=== PATIENT | male | born 1970 | race Caucasian/White ===

== ENCOUNTER 2018-07-18 05:54 | Inpatient (IN) | payer OTHER ==
[2018-07-18] MEDS ORDERED: ALBUTEROL/IPRATROPIUM (NEB) 3 ML AMP HHN (08:30)
[2018-07-18] MEDS ORDERED: ACETAMINOPHEN 325 MG TAB PO (08:30)
[2018-07-18] MEDS ORDERED: NACL 0.9% 3 ML SYG IV (08:30)
[2018-07-18] MEDS ORDERED: ONDANSETRON 4 MG INJ IV (08:30)
[2018-07-18] MEDS ORDERED: traMADol 50 MG TAB PO (08:30)
[2018-07-18] MEDS ORDERED: VANCOMYCIN IV PER PHARMACY XX (08:30)
[2018-07-18 09:58] LABS: ADD MAN DIFF? NO
[2018-07-18] MEDS: GABAPENTIN 300 MG CAP PO ×3 (09:59→20:46)
[2018-07-18] MEDS: CEFEPIME 1GM/50 ML (PMX) 50 ML IVPB ×2 (09:59→21:01)
[2018-07-18] MEDS ORDERED: GLUCAGON 1 MG INJ IM (10:00)
[2018-07-18] MEDS ORDERED: DEXTROSE 50% 50 ML SYRINGE IV ×2 (10:00)
[2018-07-18] MEDS: HEPARIN 5,000 UNIT/1 ML VIAL SC ×2 (10:00→20:49)
[2018-07-18] MEDS ORDERED: GLUCOSE GEL 15 GRAM TUBE BUCCAL (10:00)
[2018-07-18] MEDS ORDERED: GLUCOSE GEL 15 GRAM TUBE PO ×2 (10:00)
[2018-07-18 10:06] LABS: WHITE BLOOD COUNT 6.2 10^3/ul (4.8-10.8)
[2018-07-18 10:07] LABS: ABNORMAL IP MESSAGE 1; BASOPHILS % 0.5 % (0.0-2.0); EOSINOPHILS # 0.1 10^3/ul (0.0-0.5); EOSINOPHILS % 1.3 % (0.0-7.0); HEMATOCRIT 40.8 % (42.0-52.0); HEMOGLOBIN 14.2 g/dl (14.0-18.0); LYMPHOCYTES # 1.8 10^3/ul (0.8-2.9); LYMPHOCYTES % 29.6 % (15.0-51.0); MEAN CORPUSCULAR HEMOGLOBIN 31.7 pg (29.0-33.0); MEAN CORPUSCULAR HGB CONC 34.8 g/dl (32.0-37.0); MEAN CORPUSCULAR VOLUME 91.1 fl (82.0-101.0); MEAN PLATELET VOLUME 12.4 fl (7.4-10.4); MONOCYTE # 0.4 10^3/ul (0.3-0.9); MONOCYTES % 6.3 % (0.0-11.0); NEUTROPHIL # 3.8 10^3/ul (1.6-7.5); PLATELET COUNT 79 10^3/UL (140-415); POSITIVE DIFF @See below; RED BLOOD COUNT 4.48 10^6/ul (4.70-6.10); RED CELL DISTRIBUTION WIDTH 12.7 % (11.5-14.5)
[2018-07-18 10:16] LABS: HEMOGLOBIN A1C 9.9 % (0-5.9)
[2018-07-18 10:24] LABS: ALANINE AMINOTRANSFERASE 31 IU/L (13-69); ALBUMIN 3.6 g/dl (3.3-4.9); ALKALINE PHOSPHATASE 82 IU/L (42-121); ANION GAP 6 (5-13); ASPARTATE AMINO TRANSFERASE 28 IU/L (15-46); BILIRUBIN,INDIRECT 0.8 mg/dl (0-1.1); BILIRUBIN,TOTAL 0.8 mg/dl (0.2-1.3); BLOOD UREA NITROGEN 11 mg/dl (7-20); CALCIUM 8.9 mg/dl (8.4-10.2); CARBON DIOXIDE 30 mmol/L (21-31); CHLORIDE 100 mmol/L (97-110); CREATININE 0.58 mg/dl (0.61-1.24); Estimated GFR > 60 mL/min (>60); GLUCOSE 280 mg/dl (70-220); POTASSIUM 3.9 mmol/L (3.5-5.1); SODIUM 136 mmol/L (135-144); TOTAL PROTEIN 7.2 g/dl (6.1-8.1)
[2018-07-18] MEDS: VANCOMYCIN HCL 2 GM in SOD CHLORIDE 0.9% 500 ML IVPB (12:35)
[2018-07-18] MEDS: LISINOPRIL 10 MG TAB PO (12:42)
[2018-07-18] MEDS: HYDROCODONE/APAP (10/325) TAB PO (12:42)
[2018-07-18] MEDS: INSULIN ASPART [NOVOLOG] 3 ML PEN SC ×5 (13:18→20:57)
[2018-07-18] MEDS: INSULIN GLARGINE [LANTus] (100 UNITS/ML) SYG SC (14:36)
[2018-07-18] MEDS ORDERED: INSULIN GLARGINE [LANTus] (100 UNITS/ML) SYG SC (21:00)
[2018-07-18] MEDS: HYDROCODONE/APAP (5/325) TAB PO (21:53)
[2018-07-19] MEDS: VANCOMYCIN HCL 1.5 GM in SOD CHLORIDE 0.9% 250 ML IVPB ×2 (00:08→12:45)
[2018-07-19] MEDS: ACCU-CHEK XX (02:00)
[2018-07-19 06:12] LABS: ADD MAN DIFF? NO
[2018-07-19 06:19] LABS: ABNORMAL IP MESSAGE 1; BASOPHILS % 0.3 % (0.0-2.0); EOSINOPHILS # 0.1 10^3/ul (0.0-0.5); EOSINOPHILS % 1.6 % (0.0-7.0); HEMATOCRIT 39.9 % (42.0-52.0); HEMOGLOBIN 13.9 g/dl (14.0-18.0); LYMPHOCYTES # 2.3 10^3/ul (0.8-2.9); LYMPHOCYTES % 37.1 % (15.0-51.0); MEAN CORPUSCULAR HEMOGLOBIN 32.3 pg (29.0-33.0); MEAN CORPUSCULAR HGB CONC 34.8 g/dl (32.0-37.0); MEAN CORPUSCULAR VOLUME 92.6 fl (82.0-101.0); MEAN PLATELET VOLUME 12.8 fl (7.4-10.4); MONOCYTE # 0.5 10^3/ul (0.3-0.9); MONOCYTES % 8.3 % (0.0-11.0); NEUTROPHIL # 3.2 10^3/ul (1.6-7.5); NEUTROPHILS % 52.5 % (39.0-77.0); PLATELET COUNT 76 10^3/UL (140-415); POSITIVE DIFF @See below; RED BLOOD COUNT 4.31 10^6/ul (4.70-6.10); RED CELL DISTRIBUTION WIDTH 12.6 % (11.5-14.5)
[2018-07-19 06:19] LABS: WHITE BLOOD COUNT 6.1 10^3/ul (4.8-10.8)
[2018-07-19 06:35] LABS: CHOL/HDL RATIO 4.1 RATIO; HDL CHOLESTEROL 32 mg/dl (27-67); LDL CHOLESTEROL,CALCULATED 62 mg/dl; TRIGLYCERIDES 194 mg/dl (0-149)
[2018-07-19 06:35] LABS: CHOLESTEROL 133 mg/dl (100-200)
[2018-07-19 06:43] LABS: ANION GAP 5 (5-13); BLOOD UREA NITROGEN 11 mg/dl (7-20); CALCIUM 8.8 mg/dl (8.4-10.2); CARBON DIOXIDE 31 mmol/L (21-31); CHLORIDE 101 mmol/L (97-110); Estimated GFR > 60 mL/min (>60); GLUCOSE 225 mg/dl (70-220); POTASSIUM 4.8 mmol/L (3.5-5.1); SODIUM 137 mmol/L (135-144)
[2018-07-19] MEDS: INSULIN ASPART [NOVOLOG] 3 ML PEN SC ×7 (08:04→20:50)
[2018-07-19] MEDS: INSULIN GLARGINE [LANTus] (100 UNITS/ML) SYG SC (08:05)
[2018-07-19] MEDS: HEPARIN 5,000 UNIT/1 ML VIAL SC ×2 (08:05→20:47)
[2018-07-19] MEDS: LISINOPRIL 10 MG TAB PO (08:09)
[2018-07-19] MEDS: GABAPENTIN 300 MG CAP PO ×3 (08:09→20:44)
[2018-07-19] MEDS: CEFEPIME 1GM/50 ML (PMX) 50 ML IVPB ×2 (08:10→20:44)
[2018-07-19] MEDS: NICOTINE (21 MG/24 HR) PATCH TRANSDERM (10:09)
[2018-07-19] MEDS: DAKINS 0.0125%(1/40) 473 ML SOLUTION TP ×2 (14:05)
[2018-07-19] MEDS: HYDROCODONE/APAP (5/325) TAB PO ×2 (18:06→23:11)
[2018-07-19] MEDS: GENTAMICIN 0.1% 15 GM OINT TOP (21:00)
[2018-07-19] MEDS: MUPIROCIN 2% 22 GM OINT TOP (23:09)
[2018-07-20] MEDS: VANCOMYCIN HCL 1.5 GM in SOD CHLORIDE 0.9% 250 ML IVPB (01:14)
[2018-07-20] MEDS: ACCU-CHEK XX (02:00)
[2018-07-20 05:18] LABS: ADD MAN DIFF? NO
[2018-07-20 05:24] LABS: WHITE BLOOD COUNT 6.8 10^3/ul (4.8-10.8)
[2018-07-20 05:24] LABS: ABNORMAL IP MESSAGE 1; BASOPHILS % 0.3 % (0.0-2.0); EOSINOPHILS # 0.1 10^3/ul (0.0-0.5); EOSINOPHILS % 1.2 % (0.0-7.0); HEMATOCRIT 40.5 % (42.0-52.0); HEMOGLOBIN 14.2 g/dl (14.0-18.0); LYMPHOCYTES # 2.3 10^3/ul (0.8-2.9); LYMPHOCYTES % 33.8 % (15.0-51.0); MEAN CORPUSCULAR HEMOGLOBIN 31.9 pg (29.0-33.0); MEAN CORPUSCULAR HGB CONC 35.1 g/dl (32.0-37.0); MEAN PLATELET VOLUME 12.4 fl (7.4-10.4); MONOCYTE # 0.5 10^3/ul (0.3-0.9); MONOCYTES % 7.5 % (0.0-11.0); NEUTROPHIL # 3.9 10^3/ul (1.6-7.5); NEUTROPHILS % 56.9 % (39.0-77.0); PLATELET COUNT 82 10^3/UL (140-415); POSITIVE DIFF @See below; RED BLOOD COUNT 4.45 10^6/ul (4.70-6.10); RED CELL DISTRIBUTION WIDTH 12.8 % (11.5-14.5)
[2018-07-20 05:48] LABS: ANION GAP 9 (5-13); BLOOD UREA NITROGEN 12 mg/dl (7-20); CALCIUM 8.7 mg/dl (8.4-10.2); CARBON DIOXIDE 28 mmol/L (21-31); CHLORIDE 101 mmol/L (97-110); CREATININE 0.52 mg/dl (0.61-1.24); Estimated GFR > 60 mL/min (>60); GLUCOSE 166 mg/dl (70-220); POTASSIUM 3.9 mmol/L (3.5-5.1); SODIUM 138 mmol/L (135-144)
[2018-07-20] MEDS: INSULIN ASPART [NOVOLOG] 3 ML PEN SC ×7 (08:14→20:22)
[2018-07-20] MEDS: HYDROCODONE/APAP (5/325) TAB PO ×3 (08:42→22:30)
[2018-07-20] MEDS: LISINOPRIL 10 MG TAB PO (08:42)
[2018-07-20] MEDS: GABAPENTIN 300 MG CAP PO ×3 (08:42→20:16)
[2018-07-20] MEDS: INSULIN GLARGINE [LANTus] (100 UNITS/ML) SYG SC (08:44)
[2018-07-20] MEDS: NICOTINE (21 MG/24 HR) PATCH TRANSDERM (08:44)
[2018-07-20] MEDS: CEFEPIME 1GM/50 ML (PMX) 50 ML IVPB ×2 (08:44→20:16)
[2018-07-20] MEDS: HEPARIN 5,000 UNIT/1 ML VIAL SC ×2 (08:44→20:23)
[2018-07-20] MEDS: MUPIROCIN 2% 22 GM OINT TOP ×2 (08:45→20:23)
[2018-07-20] MEDS: GENTAMICIN 0.1% 15 GM OINT TOP ×3 (08:45→20:23)
[2018-07-20] MEDS: DAKINS 0.0125%(1/40) 473 ML SOLUTION TP (08:46)
[2018-07-20] MEDS: VANCOMYCIN HCL 1.25 GM in SOD CHLORIDE 0.9% 250 ML IVPB ×2 (09:57→18:35)
[2018-07-20] MEDS: FISH OIL 1,000 MG CAP PO ×2 (11:33→20:16)
[2018-07-21] MEDS: ACCU-CHEK XX (02:00)
[2018-07-21] MEDS: VANCOMYCIN HCL 1.25 GM in SOD CHLORIDE 0.9% 250 ML IVPB ×3 (02:29→19:29)
[2018-07-21 03:07] LABS: VANCOMYCIN,TROUGH 12.3 ug/ml (10.0-20.0)
[2018-07-21] MEDS: INSULIN ASPART [NOVOLOG] 3 ML PEN SC ×7 (08:00→21:00)
[2018-07-21] MEDS: GABAPENTIN 300 MG CAP PO ×3 (08:15→21:40)
[2018-07-21] MEDS: LISINOPRIL 10 MG TAB PO (08:15)
[2018-07-21] MEDS: FISH OIL 1,000 MG CAP PO ×2 (08:15→21:40)
[2018-07-21] MEDS: MUPIROCIN 2% 22 GM OINT TOP ×2 (08:16→21:00)
[2018-07-21] MEDS: NICOTINE (21 MG/24 HR) PATCH TRANSDERM (08:16)
[2018-07-21] MEDS: CEFEPIME 1GM/50 ML (PMX) 50 ML IVPB ×2 (08:16→21:40)
[2018-07-21] MEDS: INSULIN GLARGINE [LANTus] (100 UNITS/ML) SYG SC (08:19)
[2018-07-21] MEDS: HEPARIN 5,000 UNIT/1 ML VIAL SC ×2 (08:20→22:09)
[2018-07-21] MEDS: HYDROCODONE/APAP (10/325) TAB PO ×2 (09:59→17:47)
[2018-07-21] MEDS: GENTAMICIN 0.1% 15 GM OINT TOP ×3 (10:00→21:00)
[2018-07-21] MEDS: DAKINS 0.0125%(1/40) 473 ML SOLUTION TP (10:01)
[2018-07-22] MEDS: ACCU-CHEK XX (01:20)
[2018-07-22] MEDS: VANCOMYCIN HCL 1.25 GM in SOD CHLORIDE 0.9% 250 ML IVPB ×3 (02:32→18:07)
[2018-07-22] MEDS: INSULIN ASPART [NOVOLOG] 3 ML PEN SC ×7 (08:00→20:15)
[2018-07-22] MEDS: HEPARIN 5,000 UNIT/1 ML VIAL SC ×2 (08:18→20:13)
[2018-07-22] MEDS: INSULIN GLARGINE [LANTus] (100 UNITS/ML) SYG SC (08:19)
[2018-07-22] MEDS: FISH OIL 1,000 MG CAP PO ×2 (08:19→20:10)
[2018-07-22] MEDS: CEFEPIME 1GM/50 ML (PMX) 50 ML IVPB ×2 (08:19→22:04)
[2018-07-22] MEDS: GABAPENTIN 300 MG CAP PO ×3 (08:20→20:11)
[2018-07-22] MEDS: LISINOPRIL 10 MG TAB PO (08:20)
[2018-07-22] MEDS: GENTAMICIN 0.1% 15 GM OINT TOP ×3 (08:21→20:18)
[2018-07-22] MEDS: DAKINS 0.0125%(1/40) 473 ML SOLUTION TP (08:22)
[2018-07-22] MEDS: NICOTINE (21 MG/24 HR) PATCH TRANSDERM (08:24)
[2018-07-22] MEDS: MUPIROCIN 2% 22 GM OINT TOP ×2 (08:25→20:17)
[2018-07-22 09:07] LABS: ADD MAN DIFF? NO
[2018-07-22 09:09] LABS: ABNORMAL IP MESSAGE 1; BASOPHILS % 0.5 % (0.0-2.0); EOSINOPHILS # 0.1 10^3/ul (0.0-0.5); EOSINOPHILS % 1.4 % (0.0-7.0); HEMATOCRIT 41.5 % (42.0-52.0); HEMOGLOBIN 14.6 g/dl (14.0-18.0); LYMPHOCYTES # 1.6 10^3/ul (0.8-2.9); LYMPHOCYTES % 27.4 % (15.0-51.0); MEAN CORPUSCULAR HEMOGLOBIN 32.2 pg (29.0-33.0); MEAN CORPUSCULAR HGB CONC 35.2 g/dl (32.0-37.0); MEAN CORPUSCULAR VOLUME 91.6 fl (82.0-101.0); MEAN PLATELET VOLUME 11.9 fl (7.4-10.4); MONOCYTE # 0.4 10^3/ul (0.3-0.9); MONOCYTES % 7.3 % (0.0-11.0); NEUTROPHIL # 3.6 10^3/ul (1.6-7.5); NEUTROPHILS % 63.4 % (39.0-77.0); PLATELET COUNT 84 10^3/UL (140-415); POSITIVE DIFF @See below; RED BLOOD COUNT 4.53 10^6/ul (4.70-6.10); RED CELL DISTRIBUTION WIDTH 12.7 % (11.5-14.5)
[2018-07-22 09:09] LABS: WHITE BLOOD COUNT 5.7 10^3/ul (4.8-10.8)
[2018-07-22 10:00] LABS: BLOOD UREA NITROGEN 12 mg/dl (7-20)
[2018-07-22 10:00] LABS: CREATININE 0.49 mg/dl (0.61-1.24)
[2018-07-22 10:01] LABS: ANION GAP 9 (5-13); BLOOD UREA NITROGEN 11 mg/dl (7-20); CALCIUM 9.2 mg/dl (8.4-10.2); CARBON DIOXIDE 23 mmol/L (21-31); CHLORIDE 104 mmol/L (97-110); CREATININE 0.49 mg/dl (0.61-1.24); Estimated GFR > 60 mL/min (>60); GLUCOSE 202 mg/dl (70-220); POTASSIUM 4.1 mmol/L (3.5-5.1); SODIUM 136 mmol/L (135-144)
[2018-07-22 10:04] LABS: VANCOMYCIN,TROUGH 14.5 ug/ml (10.0-20.0)
[2018-07-22] MEDS: HYDROCODONE/APAP (10/325) TAB PO (20:24)
[2018-07-23] MEDS: VANCOMYCIN HCL 1.25 GM in SOD CHLORIDE 0.9% 250 ML IVPB ×2 (02:42→10:45)
[2018-07-23] MEDS: HYDROCODONE/APAP (10/325) TAB PO (02:42)
[2018-07-23] MEDS: ACCU-CHEK XX (02:43)
[2018-07-23] MEDS: NICOTINE (21 MG/24 HR) PATCH TRANSDERM (08:34)
[2018-07-23] MEDS: GABAPENTIN 300 MG CAP PO ×2 (08:34→13:13)
[2018-07-23] MEDS: FISH OIL 1,000 MG CAP PO (08:34)
[2018-07-23] MEDS: LISINOPRIL 10 MG TAB PO (08:36)
[2018-07-23] MEDS: CEFEPIME 1GM/50 ML (PMX) 50 ML IVPB (08:36)
[2018-07-23] MEDS: INSULIN ASPART [NOVOLOG] 3 ML PEN SC ×4 (08:39→13:17)
[2018-07-23] MEDS: INSULIN GLARGINE [LANTus] (100 UNITS/ML) SYG SC (08:40)
[2018-07-23] MEDS: HEPARIN 5,000 UNIT/1 ML VIAL SC (08:41)
[2018-07-23] MEDS: MUPIROCIN 2% 22 GM OINT TOP (13:19)
[2018-07-23] MEDS: DAKINS 0.0125%(1/40) 473 ML SOLUTION TP (13:20)
[2018-07-23] MEDS: GENTAMICIN 0.1% 15 GM OINT TOP ×2 (13:20→13:27)
== END 2018-07-23 15:45 | disposition home health service (06) | DRG 624 ==
LOC: 2NE 07-21 11:54
PROC: 0JBR0ZZ Excision of Left Foot Subcutaneous Tissue and Fascia, Open Approach (ICD-10-PCS; principal; 2018-07-19)
DX: E11.621 Type 2 diabetes mellitus with foot ulcer (principal); L97.529 Non-pressure chronic ulcer of other part of left foot with unspecified severity; E11.42 Type 2 diabetes mellitus with diabetic polyneuropathy; E11.51 Type 2 diabetes mellitus with diabetic peripheral angiopathy without gangrene; K74.60 Unspecified cirrhosis of liver; I10 Essential (primary) hypertension; E66.01 Morbid (severe) obesity due to excess calories; I70.208 Unspecified atherosclerosis of native arteries of extremities, other extremity; F17.200 Nicotine dependence, unspecified, uncomplicated; K75.81 Nonalcoholic steatohepatitis (NASH); E11.65 Type 2 diabetes mellitus with hyperglycemia; M20.22 Hallux rigidus, left foot; Z79.4 Long term (current) use of insulin; Z68.38 Body mass index [BMI] 38.0-38.9, adult
CPT/HCPCS: 73620; 73718; 80048; 80053; 80061; 80202; 82565; 82962; 83036; 84520; 85025; 87070; 87081; 93922; 93971

== ENCOUNTER 2018-08-09 03:27 | Inpatient (IN) | payer OTHER ==
[2018-08-09] MEDS ORDERED: NITROGLYCERIN (SL) 0.4 MG TAB SL (04:00)
[2018-08-09 04:01] LABS: ADD MAN DIFF? NO
[2018-08-09] MEDS: ASPIRIN 81 MG TAB PO (04:03)
[2018-08-09] MEDS: NITROGLYCERIN 2% 1 GM OINT PKT TD (04:04)
[2018-08-09 04:08] LABS: ABNORMAL IP MESSAGE 1; BASOPHILS % 0.4 % (0.0-2.0); EOSINOPHILS # 0.1 10^3/ul (0.0-0.5); HEMOGLOBIN 14.2 g/dl (14.0-18.0); LYMPHOCYTES % 29.4 % (15.0-51.0); MEAN CORPUSCULAR HEMOGLOBIN 32.4 pg (29.0-33.0); MEAN CORPUSCULAR HGB CONC 35.5 g/dl (32.0-37.0); MEAN CORPUSCULAR VOLUME 91.3 fl (82.0-101.0); MEAN PLATELET VOLUME 11.9 fl (7.4-10.4); MONOCYTE # 0.5 10^3/ul (0.3-0.9); MONOCYTES % 6.6 % (0.0-11.0); NEUTROPHIL # 4.2 10^3/ul (1.6-7.5); NEUTROPHILS % 62.5 % (39.0-77.0); PLATELET COUNT 93 10^3/UL (140-415); POSITIVE DIFF @See below; RED BLOOD COUNT 4.38 10^6/ul (4.70-6.10); RED CELL DISTRIBUTION WIDTH 12.5 % (11.5-14.5)
[2018-08-09 04:08] LABS: WHITE BLOOD COUNT 6.8 10^3/ul (4.8-10.8)
[2018-08-09 04:39] LABS: ALANINE AMINOTRANSFERASE 45 IU/L (13-69); ALBUMIN 3.9 g/dl (3.3-4.9); ALKALINE PHOSPHATASE 80 IU/L (42-121); ANION GAP 9 (5-13); ASPARTATE AMINO TRANSFERASE 29 IU/L (15-46); BILIRUBIN,INDIRECT 0.7 mg/dl (0-1.1); BILIRUBIN,TOTAL 0.7 mg/dl (0.2-1.3); BLOOD UREA NITROGEN 12 mg/dl (7-20); CALCIUM 9.7 mg/dl (8.4-10.2); CARBON DIOXIDE 28 mmol/L (21-31); CHLORIDE 101 mmol/L (97-110); CREATININE 0.57 mg/dl (0.61-1.24); Estimated GFR > 60 mL/min (>60); GLUCOSE 275 mg/dl (70-220); POTASSIUM 3.9 mmol/L (3.5-5.1); SODIUM 138 mmol/L (135-144); TOTAL PROTEIN 7.8 g/dl (6.1-8.1)
[2018-08-09 04:48] LABS: LIPASE 2257 U/L (23-300)
[2018-08-09 04:51] LABS: TROPONIN-I < 0.012 ng/ml (0.000-0.120)
[2018-08-09] MEDS: morphine 4 MG/ML VIAL IV (05:15)
[2018-08-09] MEDS: ONDANSETRON 4 MG INJ IV ×2 (05:15→13:49)
[2018-08-09] MEDS: SOD CHLORIDE 0.9% 1,000 ML IV ×4 (05:22→17:43)
[2018-08-09] MEDS ORDERED: DOCUSATE SODIUM 100 MG CAP PO (05:30)
[2018-08-09] MEDS ORDERED: ONDANSETRON 4 MG INJ IV (05:30)
[2018-08-09] MEDS ORDERED: ACETAMINOPHEN 325 MG TAB PO ×2 (05:30)
[2018-08-09] MEDS ORDERED: NACL 0.9% 3 ML SYG IV (05:30)
[2018-08-09] MEDS ORDERED: GLUCAGON 1 MG INJ IM (06:00)
[2018-08-09] MEDS ORDERED: DEXTROSE 50% 50 ML SYRINGE IV ×2 (06:00)
[2018-08-09] MEDS ORDERED: GLUCOSE GEL 15 GRAM TUBE PO ×2 (06:00)
[2018-08-09] MEDS ORDERED: GLUCOSE GEL 15 GRAM TUBE BUCCAL (06:00)
[2018-08-09 06:11] LABS: TRIGLYCERIDES 217 mg/dl (0-149)
[2018-08-09 06:11] LABS: CHOLESTEROL 152 mg/dl (100-200)
[2018-08-09 06:18] LABS: HEMOGLOBIN A1C 9.2 % (0-5.9)
[2018-08-09 06:26] LABS: CHOL/HDL RATIO 4.6 RATIO; HDL CHOLESTEROL 33 mg/dl (27-67); LDL CHOLESTEROL,CALCULATED 76 mg/dl
[2018-08-09] MEDS: HYDROmorphONE 1 MG/ML SYG IV ×3 (07:51→21:33)
[2018-08-09] MEDS: LISINOPRIL 10 MG TAB PO (09:00)
[2018-08-09] MEDS: GABAPENTIN 300 MG CAP PO ×3 (09:00→20:47)
[2018-08-09] MEDS: INSULIN ASPART [NOVOLOG] 3 ML PEN SC ×4 (10:28→20:47)
[2018-08-09] MEDS ORDERED: PENDING SANTYL ORDER FOR WOUND CARE XX (11:00)
[2018-08-09 11:27] LABS: CREATINE KINASE 36 IU/L (23-200)
[2018-08-09 11:32] LABS: ETHANOL < 10.0 mg/dl (0-0)
[2018-08-09 11:38] LABS: CK INDEX 2.2; TROPONIN-I < 0.012 ng/ml (0.000-0.120)
[2018-08-09] MEDS: LORAZEPAM 2 MG INJ IV (15:36)
[2018-08-09 15:43] LABS: CREATINE KINASE 39 IU/L (23-200)
[2018-08-09 15:56] LABS: CK INDEX 1.8; CK-MB 0.72 ng/ml (0.0-2.4); TROPONIN-I < 0.012 ng/ml (0.000-0.120)
[2018-08-10] MEDS: SOD CHLORIDE 0.9% 1,000 ML IV ×7 (00:36→21:23)
[2018-08-10] MEDS: INSULIN ASPART [NOVOLOG] 3 ML PEN SC ×6 (00:36→20:53)
[2018-08-10] MEDS: ACCU-CHEK XX ×6 (01:33→20:00)
[2018-08-10 03:05] LABS: AMPHETAMINE/METHAMPHETAMINE Negative (NEGATIVE); BARBITURATES Negative (NEGATIVE); BENZODIAZEPINES Negative (NEGATIVE); CANNABINOIDS Positive (NEGATIVE); COCAINE Negative (NEGATIVE); OPIATES Positive (NEGATIVE)
[2018-08-10] MEDS: HYDROmorphONE 1 MG/ML SYG IV ×3 (05:23→18:53)
[2018-08-10 05:25] LABS: ADD MAN DIFF? NO
[2018-08-10 05:31] LABS: ABNORMAL IP MESSAGE 1; BASOPHILS % 0.3 % (0.0-2.0); EOSINOPHILS # 0.1 10^3/ul (0.0-0.5); EOSINOPHILS % 1.2 % (0.0-7.0); HEMATOCRIT 38.3 % (42.0-52.0); HEMOGLOBIN 13.5 g/dl (14.0-18.0); LYMPHOCYTES % 34.1 % (15.0-51.0); MEAN CORPUSCULAR HEMOGLOBIN 32.5 pg (29.0-33.0); MEAN CORPUSCULAR HGB CONC 35.2 g/dl (32.0-37.0); MEAN CORPUSCULAR VOLUME 92.1 fl (82.0-101.0); MEAN PLATELET VOLUME 12.3 fl (7.4-10.4); MONOCYTE # 0.4 10^3/ul (0.3-0.9); NEUTROPHIL # 3.4 10^3/ul (1.6-7.5); NEUTROPHILS % 57.1 % (39.0-77.0); PLATELET COUNT 82 10^3/UL (140-415); POSITIVE DIFF @See below; RED BLOOD COUNT 4.16 10^6/ul (4.70-6.10); RED CELL DISTRIBUTION WIDTH 12.6 % (11.5-14.5)
[2018-08-10 05:31] LABS: WHITE BLOOD COUNT 5.9 10^3/ul (4.8-10.8)
[2018-08-10 05:49] LABS: LIPASE 1329 U/L (23-300)
[2018-08-10 06:04] LABS: HEMOGLOBIN A1C 9.3 % (0-5.9)
[2018-08-10 06:14] LABS: ALANINE AMINOTRANSFERASE 41 IU/L (13-69); ALBUMIN 3.5 g/dl (3.3-4.9); ALBUMIN/GLOBULIN RATIO 1.12; ALKALINE PHOSPHATASE 70 IU/L (42-121); ANION GAP 8 (5-13); ASPARTATE AMINO TRANSFERASE 28 IU/L (15-46); BILIRUBIN,INDIRECT 1.2 mg/dl (0-1.1); BILIRUBIN,TOTAL 1.2 mg/dl (0.2-1.3); BLOOD UREA NITROGEN 10 mg/dl (7-20); CALCIUM 8.5 mg/dl (8.4-10.2); CARBON DIOXIDE 28 mmol/L (21-31); CHLORIDE 103 mmol/L (97-110); CREATININE 0.56 mg/dl (0.61-1.24); Estimated GFR > 60 mL/min (>60); GLUCOSE 85 mg/dl (70-220); SODIUM 139 mmol/L (135-144); TOTAL PROTEIN 6.6 g/dl (6.1-8.1)
[2018-08-10] MEDS: LISINOPRIL 10 MG TAB PO (08:49)
[2018-08-10] MEDS: GABAPENTIN 300 MG CAP PO ×3 (08:49→20:52)
[2018-08-10] MEDS ORDERED: VANCOMYCIN IV PER PHARMACY XX (09:30)
[2018-08-10] MEDS: VANCOMYCIN HCL 2 GM in SOD CHLORIDE 0.9% 500 ML IVPB (12:36)
[2018-08-10] MEDS: URSODIOL 300 MG CAP PO ×2 (12:55→20:52)
[2018-08-10] MEDS: VANCOMYCIN HCL 1.25 GM in SOD CHLORIDE 0.9% 250 ML IVPB (20:04)
[2018-08-10] MEDS: DOXYCYCLINE 100 MG TAB PO (20:52)
[2018-08-11] MEDS: INSULIN ASPART [NOVOLOG] 3 ML PEN SC ×6 (00:32→21:00)
[2018-08-11] MEDS: HYDROmorphONE 1 MG/ML SYG IV ×4 (00:37→23:42)
[2018-08-11] MEDS: ACCU-CHEK XX ×7 (02:00→20:15)
[2018-08-11] MEDS: SOD CHLORIDE 0.9% 1,000 ML IV ×2 (04:03→10:34)
[2018-08-11] MEDS: VANCOMYCIN HCL 1.25 GM in SOD CHLORIDE 0.9% 250 ML IVPB (04:23)
[2018-08-11 05:27] LABS: ADD MAN DIFF? NO
[2018-08-11 05:32] LABS: ABNORMAL IP MESSAGE 1; BASOPHILS % 0.2 % (0.0-2.0); EOSINOPHILS # 0.1 10^3/ul (0.0-0.5); EOSINOPHILS % 0.9 % (0.0-7.0); HEMATOCRIT 35.8 % (42.0-52.0); HEMOGLOBIN 12.5 g/dl (14.0-18.0); LYMPHOCYTES # 1.7 10^3/ul (0.8-2.9); LYMPHOCYTES % 30.7 % (15.0-51.0); MEAN CORPUSCULAR HEMOGLOBIN 31.8 pg (29.0-33.0); MEAN CORPUSCULAR HGB CONC 34.9 g/dl (32.0-37.0); MEAN CORPUSCULAR VOLUME 91.1 fl (82.0-101.0); MEAN PLATELET VOLUME 12.1 fl (7.4-10.4); MONOCYTE # 0.5 10^3/ul (0.3-0.9); MONOCYTES % 8.9 % (0.0-11.0); NEUTROPHIL # 3.2 10^3/ul (1.6-7.5); NEUTROPHILS % 59.1 % (39.0-77.0); PLATELET COUNT 81 10^3/UL (140-415); POSITIVE DIFF @See below; RED BLOOD COUNT 3.93 10^6/ul (4.70-6.10); RED CELL DISTRIBUTION WIDTH 12.2 % (11.5-14.5)
[2018-08-11 05:32] LABS: WHITE BLOOD COUNT 5.4 10^3/ul (4.8-10.8)
[2018-08-11 05:54] LABS: LIPASE 884 U/L (23-300)
[2018-08-11 05:56] LABS: ALANINE AMINOTRANSFERASE 30 IU/L (13-69); ALBUMIN 3.3 g/dl (3.3-4.9); ALBUMIN/GLOBULIN RATIO 0.94; ALKALINE PHOSPHATASE 71 IU/L (42-121); ANION GAP 8 (5-13); ASPARTATE AMINO TRANSFERASE 24 IU/L (15-46); BILIRUBIN,INDIRECT 1.6 mg/dl (0-1.1); BILIRUBIN,TOTAL 1.6 mg/dl (0.2-1.3); BLOOD UREA NITROGEN 10 mg/dl (7-20); CALCIUM 8.7 mg/dl (8.4-10.2); CARBON DIOXIDE 26 mmol/L (21-31); CHLORIDE 104 mmol/L (97-110); CREATININE 0.55 mg/dl (0.61-1.24); Estimated GFR > 60 mL/min (>60); GLUCOSE 83 mg/dl (70-220); SODIUM 138 mmol/L (135-144); TOTAL PROTEIN 6.8 g/dl (6.1-8.1)
[2018-08-11] MEDS: DOXYCYCLINE 100 MG TAB PO ×2 (08:31→20:38)
[2018-08-11] MEDS: GABAPENTIN 300 MG CAP PO ×3 (08:32→20:38)
[2018-08-11] MEDS: URSODIOL 300 MG CAP PO ×2 (08:33→20:38)
[2018-08-11] MEDS: LISINOPRIL 10 MG TAB PO (08:33)
[2018-08-11 11:38] LABS: VANCOMYCIN,TROUGH 19.4 ug/ml (10.0-20.0)
[2018-08-11] MEDS: ONDANSETRON 4 MG INJ IV ×2 (17:41→23:38)
[2018-08-11] MEDS: VANCOMYCIN HCL 1.5 GM in SOD CHLORIDE 0.9% 250 ML IVPB (20:17)
[2018-08-12] MEDS: SOD CHLORIDE 0.9% 1,000 ML IV (01:15)
[2018-08-12] MEDS: ACCU-CHEK XX ×7 (02:00→20:00)
[2018-08-12] MEDS: HYDROmorphONE 1 MG/ML SYG IV ×4 (04:41→23:02)
[2018-08-12 05:45] LABS: ADD MAN DIFF? NO
[2018-08-12 05:54] LABS: WHITE BLOOD COUNT 4.9 10^3/ul (4.8-10.8)
[2018-08-12 05:54] LABS: ABNORMAL IP MESSAGE 1; BASOPHILS % 0.2 % (0.0-2.0); EOSINOPHILS # 0.1 10^3/ul (0.0-0.5); EOSINOPHILS % 1.2 % (0.0-7.0); HEMATOCRIT 36.9 % (42.0-52.0); HEMOGLOBIN 12.9 g/dl (14.0-18.0); LYMPHOCYTES # 1.7 10^3/ul (0.8-2.9); LYMPHOCYTES % 34.8 % (15.0-51.0); MEAN CORPUSCULAR HEMOGLOBIN 31.7 pg (29.0-33.0); MEAN CORPUSCULAR VOLUME 90.7 fl (82.0-101.0); MONOCYTE # 0.5 10^3/ul (0.3-0.9); MONOCYTES % 9.4 % (0.0-11.0); NEUTROPHIL # 2.7 10^3/ul (1.6-7.5); NEUTROPHILS % 54.2 % (39.0-77.0); PLATELET COUNT 85 10^3/UL (140-415); POSITIVE DIFF @See below; RED BLOOD COUNT 4.07 10^6/ul (4.70-6.10); RED CELL DISTRIBUTION WIDTH 12.2 % (11.5-14.5)
[2018-08-12 06:23] LABS: LIPASE 495 U/L (23-300)
[2018-08-12 06:50] LABS: ALANINE AMINOTRANSFERASE 31 IU/L (13-69); ALBUMIN 3.5 g/dl (3.3-4.9); ALBUMIN/GLOBULIN RATIO 0.97; ALKALINE PHOSPHATASE 73 IU/L (42-121); ANION GAP 8 (5-13); ASPARTATE AMINO TRANSFERASE 28 IU/L (15-46); BILIRUBIN,INDIRECT 1.5 mg/dl (0-1.1); BILIRUBIN,TOTAL 1.5 mg/dl (0.2-1.3); BLOOD UREA NITROGEN 10 mg/dl (7-20); CALCIUM 8.8 mg/dl (8.4-10.2); CARBON DIOXIDE 27 mmol/L (21-31); CHLORIDE 104 mmol/L (97-110); Estimated GFR > 60 mL/min (>60); GLUCOSE 87 mg/dl (70-220); POTASSIUM 3.8 mmol/L (3.5-5.1); SODIUM 139 mmol/L (135-144); TOTAL PROTEIN 7.1 g/dl (6.1-8.1)
[2018-08-12] MEDS: INSULIN ASPART [NOVOLOG] 3 ML PEN SC ×4 (07:00→21:00)
[2018-08-12] MEDS: URSODIOL 300 MG CAP PO ×2 (08:37→20:55)
[2018-08-12] MEDS: GABAPENTIN 300 MG CAP PO ×3 (08:37→20:55)
[2018-08-12] MEDS: DOXYCYCLINE 100 MG TAB PO ×2 (08:37→20:55)
[2018-08-12] MEDS: VANCOMYCIN HCL 1.5 GM in SOD CHLORIDE 0.9% 250 ML IVPB ×2 (08:37→20:55)
[2018-08-12] MEDS: LISINOPRIL 10 MG TAB PO (08:38)
[2018-08-12] MEDS: LIDOCAINE 1% (MPF) 5 ML VIAL SC (16:00)
[2018-08-12] MEDS: LACTOBACILLUS RHAMNOSUS CAP PO (20:55)
[2018-08-13] MEDS: ACCU-CHEK XX ×7 (02:00→20:00)
[2018-08-13] MEDS: HYDROmorphONE 1 MG/ML SYG IV ×5 (04:25→22:41)
[2018-08-13] MEDS: INSULIN ASPART [NOVOLOG] 3 ML PEN SC ×4 (07:00→20:52)
[2018-08-13 07:48] LABS: ADD MAN DIFF? NO
[2018-08-13 07:52] LABS: ABNORMAL IP MESSAGE 1; BASOPHILS % 0.3 % (0.0-2.0); EOSINOPHILS # 0.1 10^3/ul (0.0-0.5); EOSINOPHILS % 0.9 % (0.0-7.0); HEMATOCRIT 39.3 % (42.0-52.0); HEMOGLOBIN 13.8 g/dl (14.0-18.0); LYMPHOCYTES # 1.7 10^3/ul (0.8-2.9); LYMPHOCYTES % 21.8 % (15.0-51.0); MEAN CORPUSCULAR HEMOGLOBIN 32.2 pg (29.0-33.0); MEAN CORPUSCULAR HGB CONC 35.1 g/dl (32.0-37.0); MEAN CORPUSCULAR VOLUME 91.8 fl (82.0-101.0); MEAN PLATELET VOLUME 12.4 fl (7.4-10.4); MONOCYTE # 0.6 10^3/ul (0.3-0.9); MONOCYTES % 7.9 % (0.0-11.0); NEUTROPHIL # 5.2 10^3/ul (1.6-7.5); PLATELET COUNT 91 10^3/UL (140-415); POSITIVE DIFF @See below; RED BLOOD COUNT 4.28 10^6/ul (4.70-6.10); RED CELL DISTRIBUTION WIDTH 12.4 % (11.5-14.5)
[2018-08-13 07:52] LABS: WHITE BLOOD COUNT 7.6 10^3/ul (4.8-10.8)
[2018-08-13 08:19] LABS: VANCOMYCIN,TROUGH 10.8 ug/ml (10.0-20.0)
[2018-08-13 08:20] LABS: MAGNESIUM 1.7 mg/dl (1.7-2.5)
[2018-08-13 08:20] LABS: PHOSPHORUS 4.9 mg/dl (2.5-4.9)
[2018-08-13 08:21] LABS: ALANINE AMINOTRANSFERASE 30 IU/L (13-69); ALBUMIN 3.8 g/dl (3.3-4.9); ALBUMIN/GLOBULIN RATIO 1.05; ALKALINE PHOSPHATASE 69 IU/L (42-121); ANION GAP 10 (5-13); ASPARTATE AMINO TRANSFERASE 35 IU/L (15-46); BILIRUBIN,INDIRECT 1.1 mg/dl (0-1.1); BILIRUBIN,TOTAL 1.1 mg/dl (0.2-1.3); BLOOD UREA NITROGEN 13 mg/dl (7-20); CALCIUM 8.8 mg/dl (8.4-10.2); CARBON DIOXIDE 26 mmol/L (21-31); CHLORIDE 103 mmol/L (97-110); CREATININE 0.59 mg/dl (0.61-1.24); Estimated GFR > 60 mL/min (>60); GLUCOSE 119 mg/dl (70-220); POTASSIUM 4.1 mmol/L (3.5-5.1); SODIUM 139 mmol/L (135-144); TOTAL PROTEIN 7.4 g/dl (6.1-8.1)
[2018-08-13] MEDS: DOXYCYCLINE 100 MG TAB PO ×2 (08:21→20:42)
[2018-08-13] MEDS: LACTOBACILLUS RHAMNOSUS CAP PO ×2 (08:22→20:42)
[2018-08-13] MEDS: GABAPENTIN 300 MG CAP PO ×3 (08:22→20:41)
[2018-08-13] MEDS: URSODIOL 300 MG CAP PO ×2 (08:22→20:42)
[2018-08-13] MEDS: LISINOPRIL 10 MG TAB PO (08:22)
[2018-08-13] MEDS: VANCOMYCIN HCL 1.5 GM in SOD CHLORIDE 0.9% 250 ML IVPB (08:26)
[2018-08-13] MEDS: BISACODYL (EC) 5 MG TAB PO (12:31)
[2018-08-13] MEDS ORDERED: HYDROCODONE/APAP (5/325) TAB PO (14:00)
[2018-08-13] MEDS: CIPROFLOXACIN 500 MG TAB PO (17:41)
[2018-08-13] MEDS: VANCOMYCIN HCL 1.75 GM in SOD CHLORIDE 0.9% 500 ML IVPB (20:41)
[2018-08-14] MEDS: ACCU-CHEK XX ×5 (01:02→14:37)
[2018-08-14] MEDS: HYDROmorphONE 1 MG/ML SYG IV ×4 (02:48→15:14)
[2018-08-14] MEDS: CIPROFLOXACIN 500 MG TAB PO (06:35)
[2018-08-14] MEDS: INSULIN ASPART [NOVOLOG] 3 ML PEN SC ×2 (07:00→12:56)
[2018-08-14] MEDS: VANCOMYCIN HCL 1.75 GM in SOD CHLORIDE 0.9% 500 ML IVPB (08:20)
[2018-08-14] MEDS: DOXYCYCLINE 100 MG TAB PO (08:20)
[2018-08-14] MEDS: URSODIOL 300 MG CAP PO (08:20)
[2018-08-14] MEDS: LACTOBACILLUS RHAMNOSUS CAP PO (08:20)
[2018-08-14] MEDS: GABAPENTIN 300 MG CAP PO ×2 (08:20→12:57)
[2018-08-14] MEDS: LISINOPRIL 10 MG TAB PO (08:21)
== END 2018-08-14 17:10 | disposition home health service (06) | DRG 424 ==
LOC: E/R 03:27 → 2NE 05:15
PROC: 0JBR0ZZ Excision of Left Foot Subcutaneous Tissue and Fascia, Open Approach (ICD-10-PCS; principal; 2018-08-09)
PROC: 02HV33Z Insertion of Infusion Device into Superior Vena Cava, Percutaneous Approach (ICD-10-PCS; 2018-08-13)
PROC: B548ZZA Ultrasonography of Superior Vena Cava, Guidance (ICD-10-PCS; 2018-08-13)
DX: K85.10 Biliary acute pancreatitis without necrosis or infection (principal); L97.426 Non-pressure chronic ulcer of left heel and midfoot with bone involvement without evidence of necrosis; M86.8X7 Other osteomyelitis, ankle and foot; D69.6 Thrombocytopenia, unspecified; E11.40 Type 2 diabetes mellitus with diabetic neuropathy, unspecified; E11.621 Type 2 diabetes mellitus with foot ulcer; E11.51 Type 2 diabetes mellitus with diabetic peripheral angiopathy without gangrene; E11.69 Type 2 diabetes mellitus with other specified complication; E11.65 Type 2 diabetes mellitus with hyperglycemia; K75.81 Nonalcoholic steatohepatitis (NASH); K74.60 Unspecified cirrhosis of liver; I10 Essential (primary) hypertension; F17.200 Nicotine dependence, unspecified, uncomplicated; M20.22 Hallux rigidus, left foot; K81.1 Chronic cholecystitis; E78.00 Pure hypercholesterolemia, unspecified; E66.9 Obesity, unspecified; Z68.39 Body mass index [BMI] 39.0-39.9, adult; Z79.4 Long term (current) use of insulin
CPT/HCPCS: 36415; 36569; 71045; 73718; 74181; 76705; 76937; 80053; 80061; 80202; 80307; 82550; 82553; 82962; 83036; 83690; 83735; 84100; 84484; 85025; 87081; 93005; 96374; 96375; 99285-25